=== PATIENT | male | born 1945 | race Two or more races ===

== ENCOUNTER 2019-06-09 21:41 | Inpatient (IN) | payer MEDICARE, MEDICAID ==
[~2019-06-09] VITALS: Ht 165.1 cm; Wt 55.8 kg
--- NOTE | 2019-06-09 21:52 | NUR ---
DERIC BROUSSARD 34 FROM [facility] C/P INCREASED AGITATION X 1 DAY. BASELINE AOX1. ON ASSESSMENT, PT IS PLEASANT, CALM, COOPERATIVE. DENIES ANY MEDICAL COMPLAINTS. NO ACUTE DISTRESS NOTED. SKIN INTACT. READY FOR EVAL.
[2019-06-09 22:12] LABS: BASOPHILS # (AUTO) 0.1 /CMM (0.0-0.2); BASOPHILS % (AUTO) 0.7 % (0.0-2.0); EOSINOPHILS % (AUTO) 0.3 % (0.0-6.0); HEMATOCRIT 35 % (39-51); HEMOGLOBIN 12.2 g/dL (13.5-17.5); LYMPHOCYTES # (AUTO) 0.6 /CMM (0.8-4.8); LYMPHOCYTES % (AUTO) 8.4 % (20.0-44.0); MEAN CORPUSCULAR HGB CONC 35 g/dl (31.0-36.0); MEAN CORPUSCULAR VOLUME 99 fL (80-96); MONOCYTES # (AUTO) 0.6 /CMM (0.1-1.30); MONOCYTES % (AUTO) 7.9 % (2.0-12.0); NEUTROPHILS # (AUTO) 6.2 /CMM (1.8-8.9); NEUTROPHILS % (AUTO) 82.7 % (43.0-81.0); PLATELET COUNT (AUTO) 192 /CMM (150-450); RED BLOOD CELL COUNT(AUTO) 3.57 MIL/uL (4.5-6.0); WHITE BLOOD COUNT (AUTO) 7.5 K/uL (4.3-11.0)
[2019-06-09 22:21] LABS: CARBON DIOXIDE 30 mmol/L (21-32); CHLORIDE 106 mmol/L (98-107); CREATININE 1.8 mg/dL (0.6-1.3); GLUCOSE 159 mg/dL (74-106); POTASSIUM 5.4 mmol/L (3.5-5.1); SODIUM SERUM 141 mmol/L (136-145); UREA NITROGEN, BLOOD 33 mg/dL (7-18)
[2019-06-09 22:30] LABS: ALKALINE PHOSPHATASE 168 U/L (46-116); BILIRUBIN,DIRECT 0.2 mg/dL (0.0-0.2); BILIRUBIN,TOTAL 0.3 mg/dL (0.2-1.0)
[2019-06-09 22:31] LABS: ALANINE AMINOTRANSFERASE 33 U/L (12-78); ALBUMIN 3.6 g/dL (3.4-5.0); ASPARTATE AMINOTRANSFERASE 47 U/L (15-37); SALICYLATE 3.4 mg/dL (2.8-20.0); TOTAL PROTEIN, SERUM 7.3 g/dL (6.4-8.2)
[2019-06-09 22:32] LABS: ACETAMINOPHEN < 2 ug/ml (10-30); ALCOHOL, BLOOD < 3 mg/dL (0-0)
[2019-06-09 22:40] LABS: APPEARANCE,URINE Clear (CLEAR); BILIRUBIN,URINE MODERATE (NEGATIVE); BLOOD, URINE Negative Ery/uL (NEGATIVE); COLOR,URINE Orange (YELLOW); KETONES,URINE 15 (NEGATIVE); LEUKOCYTE ESTERASE ,URINE Negative (NEGATIVE); NITRITE, URINE Negative (NEGATIVE); PROTEIN,URINE 100 mg/dl (NEGATIVE); UGLUCOSE 100 MG/DL mg/dL (NEGATIVE); UROBILINOGEN,URINE 0.2 EU/dL (0.2)
[2019-06-09 22:51] LABS: BACTERIA,URINE None seen /HPF (None Seen); RBC,URINE NONE SEEN /HPF (0-2); SQUAMOUS EPITHELIAL CELL,UR Few /HPF (None Seen); WBC,URINE 0-2 /HPF (0-3)
[2019-06-10] MEDS ORDERED: ZOLPIDEM TARTRATE 5 MG TABLET PO PRN
[2019-06-10] MEDS ORDERED: IV NS 0.9% 1,000 ML BAG IV ONE
[2019-06-10] MEDS ORDERED: ONDANSETRON HCL/PF 4 MG/2 ML VIAL IVP PRN
[2019-06-10] MEDS ORDERED: MAGNESIUM HYDROXIDE 30 ML UDC PO PRN
[2019-06-10] MEDS ORDERED: ACETAMINOPHEN 325 MG TABLET PO PRN
[2019-06-10] MEDS ORDERED: INSULIN REGULAR, HUMAN 100 UNIT/ML 3 ML VIAL SQ PRN
[2019-06-10] MEDS ORDERED: DEXTROSE 50%-WATER 50 ML DISP.SYRIN IV PRN
[2019-06-10] MEDS ORDERED: Z GUARD REMEDY 2 OZ OINT TP PRN
[2019-06-10] MEDS ORDERED: MAG HYDROX/AL HYDROX/SIMETH 30 ML UDC PO PRN
--- NOTE | 2019-06-10 00:10 | NUR ---
REPORT GIVEN TO ADRIANA GEORGE FOR CONTINUATION OF CARE.
[2019-06-10] MEDS ORDERED: OLOP5DRO EACHEYE (00:16)
[2019-06-10] MEDS ORDERED: LISI-607 PO (00:16)
[2019-06-10] MEDS ORDERED: ENTA200T PO (00:16)
[2019-06-10] MEDS ORDERED: CARB1TAB24 PO (00:16)
[2019-06-10] MEDS ORDERED: AMIN30LI2 PO (00:16)
[2019-06-10] MEDS ORDERED: MULT-213 PO (00:16)
[2019-06-10] MEDS ORDERED: ASCO500T8 PO (00:16)
[2019-06-10] MEDS ORDERED: ATOR80TA PO (00:16)
[2019-06-10] MEDS ORDERED: MELA5TAB PO (00:16)
[2019-06-10] MEDS ORDERED: ASPI-1169 PO (00:16)
[2019-06-10] MEDS ORDERED: DONE5TAB34 PO (00:16)
[2019-06-10] MEDS ORDERED: METF-442 PO (00:16)
[2019-06-10] MEDS ORDERED: QUET25TA PO (00:17)
[2019-06-10] MEDS ORDERED: MIRT15TA7 PO (00:17)
--- NOTE | 2019-06-10 00:21 | NUR ---
PT TRANSFERED TO [facility]IA [facility] WITH EMT.
[2019-06-10 00:30] VITALS: BP 130/68
--- NOTE | 2019-06-10 00:30 | NUR ---
ATOMIC PROCESS ENGINEER NOTES, RECEIVED PATIENT FROM ER DEPARTMENT IN COMPANY OF ONE NURSE VIA LEE, PATIENT UNDER MEDICAL SERVICES OF KAREEM BELCHER, WITH ADMITTING DX OF ACUTE RENAL FAILURE, PATIENT A/O TO SELF ABLE TO VERBALIZED AND RESPONDED "IM FINE " WHEN ASKED HOW HES FEELING, BREATHING EVEN AND UNLABORED, NO SOB/ACUTE DISTRESS NOTED, AT ROOM AIR WITH OPTIMAL O2 SATURATION LEVEL , DENIES PAIN OR DISCOMFORT, NO EPISODES OF AGITATION NOTES AT THIS TIME, IV ACCESS IN RIGHT UPPER ARM, PATENT AND INTACT, INFUSING NS 0.9% BOLUS FROM ER, INFUSING WELL AND PATIENT TOLERATED WELL, BED BATH PROVIDED UPON ADMISSION, BED LOCKED AND IN LOW POSITION, CALL LIGHT W/I REACH, BILATERAL 2 1/2 S/R OF BED UP, WILL CONTINUE TO MONITOR CLOSELY, VS 97.9, 78, 18, 100%, 130/68.
[2019-06-10] MEDS: IV NS 0.9% 1,000 ML IV PRN ×2 (00:50→17:48)
[2019-06-10 04:00] VITALS: BP 137/74
--- NOTE | 2019-06-10 06:42 | NUR ---
RN NOTES, PATIENT IN BED AWAKE AT THIS TIME, NO SIGNIFICANT CHANGE IN CONDITION DURING THE NIGHT WITH STABLE VITAL SIGNS, WILL ENDORSE CONTINUITY OF CARE TO ONCOMING NURSE.
--- NOTE | 2019-06-10 07:15 | NUR ---
PATIENT A/OX1 TO SELF ONLY. NO ACUTE DISTRESS OR SOB NOTED. PATIENT IS AGITATED AND HITTING STAFF WHEN TOUCHED. UNABLE TO COMPLETE BLOOD SUGAR. L UA 20G INFUSING NS ORDERED. REORIENTATION PROVIDED PRN. BED ALARM ON, SIDE RAILS UPX3, NEXT TO NURSING STATION, CALL LIGHT WITHIN REACH. WILL CONTINUE TO MONITOR.
[2019-06-10] MEDS: BLOOD SUGAR DIAGNOSTIC 1 EACH STRIP IN SCH ×4 (07:30→22:53)
[2019-06-10 07:39] LABS: BASOPHILS % (AUTO) 0.3 % (0.0-2.0); EOSINOPHILS % (AUTO) 1.7 % (0.0-6.0); HEMATOCRIT 34 % (39-51); HEMOGLOBIN 11.6 g/dL (13.5-17.5); LYMPHOCYTES # (AUTO) 1.6 /CMM (0.8-4.8); LYMPHOCYTES % (AUTO) 26.8 % (20.0-44.0); MEAN CORPUSCULAR HGB CONC 35 g/dl (31.0-36.0); MEAN CORPUSCULAR VOLUME 98 fL (80-96); MONOCYTES # (AUTO) 0.6 /CMM (0.1-1.30); MONOCYTES % (AUTO) 9.7 % (2.0-12.0); NEUTROPHILS # (AUTO) 3.6 /CMM (1.8-8.9); NEUTROPHILS % (AUTO) 61.5 % (43.0-81.0); PLATELET COUNT (AUTO) 169 /CMM (150-450); RED BLOOD CELL COUNT(AUTO) 3.42 MIL/uL (4.5-6.0); WHITE BLOOD COUNT (AUTO) 5.9 K/uL (4.3-11.0)
[2019-06-10 08:00] VITALS: BP 134/63
[2019-06-10 08:07] LABS: CHOLESTEROL 121 mg/dL (<200); HDL CHOLESTEROL 50 mg/dL (40-60); LDL 59 mg/dL (0-99); THYROID STIMULATING HORMONE 1.177 uIU/mL (0.358-3.74); TRIGLYCERIDES 68 mg/dL (30-150)
[2019-06-10 08:15] LABS: ALANINE AMINOTRANSFERASE 41 U/L (12-78); ALKALINE PHOSPHATASE 160 U/L (46-116); ASPARTATE AMINOTRANSFERASE 38 U/L (15-37); BILIRUBIN,TOTAL 0.3 mg/dL (0.2-1.0); CALCIUM, SERUM 8.3 mg/dL (8.5-10.1); CARBON DIOXIDE 22 mmol/L (21-32); CHLORIDE 108 mmol/L (98-107); CREATININE 1.2 mg/dL (0.6-1.3); GLUCOSE 98 mg/dL (74-106); MAGNESIUM 1.7 mg/dL (1.8-2.4); PHOSPHORUS 3.5 mg/dL (2.5-4.9); POTASSIUM 4.1 mmol/L (3.5-5.1); SODIUM SERUM 139 mmol/L (136-145); TOTAL PROTEIN, SERUM 6.3 g/dL (6.4-8.2); UREA NITROGEN, BLOOD 30 mg/dL (7-18)
[2019-06-10] MEDS: HEPARIN SODIUM, PORCINE 5000 UNITS/1 ML VIAL SQ SCH ×2 (08:33→21:43)
[2019-06-10] MEDS: Magnesium 1GM/D5W 100ML PREMIX 100 ML IV SCH ×2 (11:28→12:39)
[2019-06-10 12:00] VITALS: BP 125/61
--- NOTE | 2019-06-10 15:14 | NUR ---
SON AND AT BEDSIDE. SIGNED POLST FOR DNR/DNI CODE STATUS. DR. GALLEGOS NOTIFIED, CALLED BACK, TELEPHONE/RBO FOR DNR/DNI PLACED, POLST IN CHART.
[2019-06-10 16:00] VITALS: BP 131/67
--- NOTE | 2019-06-10 19:05 | NUR ---
MS RN NOTES PATIENT IN BED AWAKE, A/OX1, CONFUSED. ON ROOM AIR, NO ACUTE DISTRESS OR SOB NOTED. DENIES ANY PAIN. IV SITE LEFT UA 20G, FLUSHING AND PATENT, SITE C/D/I. IV FLUIDS RUNNING ORDERED. REORIENTATION PROVIDED PRN. SAFETY MEASURES IN PLACE; BED ALARM ON, SIDE RAILS UPX3, BED LOCKED AND IN LOWEST POSITION, CALL LIGHT WITHIN REACH. WILL CONTINUE TO MONITOR.
--- NOTE | 2019-06-10 19:13 | NUR ---
MS RN CLOSING PATIENT A/OX1. NO ACUTE DISTRESS OR SOB NOTED. NO SIGNIFICANT CHANGES IN PATIENT CONDITION THROUGHOUT SHIFT. NOTED INCREASE IN APPETITE AND LESS AGITATION. BED LOCKED, LOW, SIDE RAILS UP X3, BED ALARM ON, CALL LIGHT WITHIN REACH, ENDORSED TO NOC RN FOR DEMETRI
[2019-06-10 20:00] VITALS: BP 139/71
[2019-06-11 04:00] VITALS: BP 131/69
[2019-06-11] MEDS: IV NS 0.9% 1,000 ML IV PRN ×2 (05:45→20:14)
--- NOTE | 2019-06-11 07:11 | NUR ---
MS RN CLOSING NOTES PATIENT IN BED SLEEPING, BUT EASY TO AROUSE. A/OX1, CONFUSED. NO ACUTE CHANGES THROUGHOUT SHIFT. ON ROOM AIR, NO ACUTE DISTRESS OR SOB NOTED. DENIES ANY PAIN. IV SITE LEFT UA 20G, FLUSHING AND PATENT, SITE C/D/I. IV FLUIDS RUNNING ORDERED. REORIENTATION PROVIDED PRN. SAFETY MEASURES MAINTAINED; BED ALARM ON, SIDE RAILS UPX3, BED LOCKED AND IN LOWEST POSITION, CALL LIGHT WITHIN REACH. ENDORSED TO AM RN FOR DEMETRI.
--- NOTE | 2019-06-11 07:20 | NUR ---
RN OPENING NOTES RECEIVED PATIENT SLEEPING IN BED COMFORTABLY, EASILY AROUSED. HE IS AO X1-2, CONFUSED. HE IS ON RA, TOLERATING WELL, SHOWS NO S/SX OF RESP DISTRESS OR SOB. HE HAS NO SWELLING OR EDEMA. DENIES ANY PAIN OR DISCOMFORT AT THIS TIME. HE IS ON A SOFT DIET. HE HAS A HOLA 20 G INFUSING NS AT 75 ML/HR. SAFETY MEASURES HAVE BEEN IMPLEMENTED, CALL LIGHT WITHIN REACH, BED IN LOWEST AND LOCKED POSITION, SIDE RAILS UP X2, WILL CONTINUE TO MONITOR FOR ANY CHANGES.
[2019-06-11 08:00] VITALS: BP 154/74
[2019-06-11 08:25] LABS: CARBON DIOXIDE 23 mmol/L (21-32); CHLORIDE 107 mmol/L (98-107); CREATININE 1.1 mg/dL (0.6-1.3); GLUCOSE 88 mg/dL (74-106); MAGNESIUM 1.9 mg/dL (1.8-2.4); POTASSIUM 4.3 mmol/L (3.5-5.1); SODIUM SERUM 138 mmol/L (136-145); UREA NITROGEN, BLOOD 20 mg/dL (7-18)
[2019-06-11] MEDS: BLOOD SUGAR DIAGNOSTIC 1 EACH STRIP IN SCH ×4 (08:26→21:31)
[2019-06-11] MEDS: HEPARIN SODIUM, PORCINE 5000 UNITS/1 ML VIAL SQ SCH ×2 (08:57→21:22)
[2019-06-11 16:00] VITALS: BP 123/72
[2019-06-11] MEDS: OLOPATADINE HCL 0.1% OPHTH BOTTLE EACHEYE SCH (16:31)
[2019-06-11] MEDS: ENTACAPONE 200 MG TABLET PO SCH (16:31)
[2019-06-11] MEDS: CARBIDOPA/LEVODOPA 25/250 MG 1 UDTAB PO SCH (16:31)
--- NOTE | 2019-06-11 19:02 | NUR ---
RN CLOSING NOTES PATIENT IS RESTING IN BED COMFORTABLY, HE DENIES ANY PAIN OR DISCOMFORT AT THIS TIME. HIS APPETITE HAS IMPROVED, PATIENT ATE ALL OF HIS MEALS THROUGHOUT THE DAY. HE IS AOX2-3, AMBULATORY ASSIST. PATIENT GOALS HAVE BEEN MET. DENIES ANY SOB OR RESP DISTRESS. SAFETY MEASURES HAVE BEEN IMPLEMENTED, CALL LIGHT WITHIN REACH, BED IN LOWEST AND LOCKED POSITION, SIDE RAILS UP X2, WILL ENDORSE TO NIGHTSHIFT RN.
--- NOTE | 2019-06-11 19:05 | NUR ---
MS RN NOTE RECEIVED PT IN STABLE CONDITION. A/O X2-3, CURRENTLY IN BED WATCHING TV. NO SIGNS OF SOB OR DISTRESS, NO C/O PAIN. IV IN HOLA #[address] WITH IVF INFUSING. ALL CURRENT NEEDS ATTENDED TO. BED LOW, LOCKED, UPPER RAILS UP, AND CALL LIGHT WITHIN REACH. WILL CONT. TO MONITOR.
[2019-06-11 20:00] VITALS: BP 147/70
[2019-06-11 21:39] VITALS: BP 147/70
[2019-06-11] MEDS ORDERED: DONEPEZIL 5 MG TABLET PO SCH (22:00)
[2019-06-11] MEDS ORDERED: QUETIAPINE FUMARATE 25 MG TABLET PO SCH (22:00)
[2019-06-11] MEDS ORDERED: MIRTAZAPINE 15 MG TABLET PO SCH (22:00)
[2019-06-12 04:00] VITALS: BP 120/59
--- NOTE | 2019-06-12 06:38 | NUR ---
MS RN NOTE PT IN STABLE CONDITION. A/O X2-3, CURRENTLY IN BED RESTING. NO SIGNS OF SOB OR DISTRESS, NO C/O PAIN. IV IN HOLA #[address] WITH IVF INFUSING. ALL CURRENT NEEDS ATTENDED TO. BED LOW, LOCKED, UPPER RAILS UP, AND CALL LIGHT WITHIN REACH. WILL CONT. TO MONITOR AND ENDORSE TO NEXT SHIFT FOR DEMETRI.
--- NOTE | 2019-06-12 07:22 | NUR ---
RN OPENING NOTES RECEIVED PATIENT SLEEPING IN BED COMFORTABLY. PT IS AOX2-3, VERBAL, AND AMBULATORY WITH ASSIST. PT DENIES ANY PAIN OR DISCOMFORT AT THIS TIME. HE IS ON RA AND TOLERATING WELL, SHOWS NO S/SX OF RESP DISTRESS. SKIN IS INTACT. HE HAS AN IV ON HOLA 20 G INFUSING NS AT 75 ML/HR. PATIENT IS ON A SOFT DIET. SAFETY MEASURES HAVE BEEN IMPLEMENTED, CALL LIGHT IS WITHIN REACH, BED IS IN LOWEST AND LOCKED POSITION, SIDE RAILS UP X2, WILL CONTINUE TO MONITOR FOR ANY CHANGES.
[2019-06-12] MEDS: BLOOD SUGAR DIAGNOSTIC 1 EACH STRIP IN SCH ×2 (07:50→12:07)
[2019-06-12 08:00] VITALS: BP_SYST 115; BP_SYST 156; BP_DIAS 72; BP_DIAS 76
[2019-06-12 08:35] LABS: CALCIUM, SERUM 7.9 mg/dL (8.5-10.1); CARBON DIOXIDE 25 mmol/L (21-32); CHLORIDE 108 mmol/L (98-107); CREATININE 1.1 mg/dL (0.6-1.3); GLUCOSE 86 mg/dL (74-106); POTASSIUM 4.2 mmol/L (3.5-5.1); SODIUM SERUM 139 mmol/L (136-145); UREA NITROGEN, BLOOD 22 mg/dL (7-18)
[2019-06-12] MEDS: OLOPATADINE HCL 0.1% OPHTH BOTTLE EACHEYE SCH (08:38)
[2019-06-12] MEDS: CARBIDOPA/LEVODOPA 25/250 MG 1 UDTAB PO SCH ×2 (08:38→13:12)
[2019-06-12] MEDS: ENTACAPONE 200 MG TABLET PO SCH ×2 (08:38→13:12)
[2019-06-12] MEDS: HEPARIN SODIUM, PORCINE 5000 UNITS/1 ML VIAL SQ SCH (08:40)
[2019-06-12] MEDS ORDERED: ASPIRIN 81 MG TAB.CHEW PO SCH (09:00)
[2019-06-12] MEDS ORDERED: MULTIVITAMINS,THERAGRAN 1 UDTAB TABLET PO SCH (09:00)
[2019-06-12] MEDS ORDERED: ASCORBIC ACID 500 MG TABLET PO SCH (09:00)
[2019-06-12] MEDS ORDERED: PROSOURCE / PROSTAT (PYXIS) 30 ML UDC PO SCH (09:00)
--- NOTE | 2019-06-12 15:05 | NUR ---
TRANSFER REPORT GIVEN TO ANABELLE AT [facility] .
--- NOTE | 2019-06-12 15:54 | NUR ---
PATIENT HAS BEEN DISCHARGED. HE LEFT THE UNIT WITH EMT [facility]. HE IS IN STABLE CONDITION. PATIENT NEEDS HAVE BEEN MET. HIS APPETITE HAS INCREASED, NO SIGNS OF AGITATION NOTED. IV SITE REMOVED, BELONGINGS LIST CHECKED OFF.
== END 2019-06-12 15:50 | DRG 640 ==
LOC: ER 21:42 → MEDSG1 06-10 00:03
PROVIDERS: ADMIT Hospitalist; ATTEND Nurse Practitioner Acute Care
DX: E86.9 Volume depletion, unspecified (principal); N17.0 Acute kidney failure with tubular necrosis; G93.41 Metabolic encephalopathy; D68.59 Other primary thrombophilia; F02.81 Dementia in other diseases classified elsewhere, unspecified severity, with behavioral disturbance; I69.351 Hemiplegia and hemiparesis following cerebral infarction affecting right dominant side; R62.7 Adult failure to thrive; E11.65 Type 2 diabetes mellitus with hyperglycemia; E78.5 Hyperlipidemia, unspecified; G20 Parkinson's disease; F32.9 Major depressive disorder, single episode, unspecified; Z91.81 History of falling; Z91.19 Patient's noncompliance with other medical treatment and regimen; Z91.14 Patient's other noncompliance with medication regimen; Z74.01 Bed confinement status; D53.9 Nutritional anemia, unspecified; E87.5 Hyperkalemia; Z79.82 Long term (current) use of aspirin; Z79.899 Other long term (current) drug therapy; Z79.84 Long term (current) use of oral hypoglycemic drugs; I11.9 Hypertensive heart disease without heart failure
CPT/HCPCS: 36415; 80048-TC; 80053-TC; 80061-TC; 80076-TC; 80305; 81000-TC; 82962-TC; 83735-TC; 84100-TC; 84443-TC; 85025-TC; 85730-TC; 87081-TC; 97116-TC; 97530-TC; G0378; G0480; J1644; J1815; J3475; J7030

== ENCOUNTER 2019-10-07 13:25 | Emergency (ER) | payer MEDICARE, OTHER ==
[~2019-10-07] VITALS: Ht 165.1 cm; Wt 63.0 kg
[~2019-10-07 13:25] MED LIST: AMIN30LI2 PO; ASCO500T87 PO; ASPI-1169 PO; ATOR80TA PO; CARB1TAB24 PO; DONE5TAB34 PO; ENTA200T PO; LISI-607 PO; MELA5TAB PO; METF-442 PO; MIRT15TA7 PO; MULT-213 PO; OLOP5DRO EACHEYE; QUET25TA PO
--- NOTE | 2019-10-07 13:35 | NUR ---
PT BIBA C/O ALTERED MENTAL STATUS TODAY. PT ALERT AND AWAKE, RESPONSIVE TO MECHANICAL STIMULUS, VSS, BREATHING EVEN AND UNLABORED ON ROOM AIR W/ NAD NOTED. PT CONNECTED TO THE MONITOR AND POX
--- NOTE | 2019-10-07 13:40 | NUR ---
CALLED [employer] FOR BREANNA MCCLOUD
[2019-10-07] MEDS ORDERED: BISA10SU11 RC (13:52)
[2019-10-07] MEDS ORDERED: LORA-259 PO (13:52)
[2019-10-07] MEDS ORDERED: INSU100V28 SQ (13:52)
[2019-10-07] MEDS ORDERED: MAGN400O6 PO (13:52)
[2019-10-07] MEDS ORDERED: TEMA7.5C PO (13:52)
[2019-10-07] MEDS ORDERED: OLAN2.5T3 PO (13:52)
[2019-10-07] MEDS ORDERED: DIVA250T4 PO (13:52)
[2019-10-07] MEDS ORDERED: ACET-868 PO (13:52)
[2019-10-07] MEDS ORDERED: DOCU-141 PO (13:52)
[2019-10-07] MEDS ORDERED: BLOO-668 IN (13:52)
[2019-10-07] MEDS ORDERED: NA P133E RC (13:52)
--- NOTE | 2019-10-07 13:56 | NUR ---
XRAY AT BEDSIDE
[2019-10-07 13:58] LABS: BASOPHILS % (AUTO) 0.3 % (0.0-2.0); EOSINOPHILS % (AUTO) 0.8 % (0.0-6.0); HEMATOCRIT 37 % (39-51); HEMOGLOBIN 12.3 g/dL (13.5-17.5); LYMPHOCYTES % (AUTO) 14.7 % (20.0-44.0); MEAN CORPUSCULAR HGB CONC 34 g/dl (31.0-36.0); MEAN CORPUSCULAR VOLUME 97 fL (80-96); MONOCYTES # (AUTO) 0.4 /CMM (0.1-1.30); MONOCYTES % (AUTO) 6.5 % (2.0-12.0); NEUTROPHILS # (AUTO) 5.3 /CMM (1.8-8.9); NEUTROPHILS % (AUTO) 77.7 % (43.0-81.0); PLATELET COUNT (AUTO) 169 /CMM (150-450); RED BLOOD CELL COUNT(AUTO) 3.78 MIL/uL (4.5-6.0); WHITE BLOOD COUNT (AUTO) 6.8 K/uL (4.3-11.0)
[2019-10-07] MEDS ORDERED: IV NS 0.9% 500 ML BAG IV ONE (14:00)
[2019-10-07 14:15] LABS: ALANINE AMINOTRANSFERASE 11 U/L (12-78); ALBUMIN 3.5 g/dL (3.4-5.0); ALKALINE PHOSPHATASE 94 U/L (46-116); ASPARTATE AMINOTRANSFERASE 35 U/L (15-37); BILIRUBIN,DIRECT 0.1 mg/dL (0.0-0.2); BILIRUBIN,TOTAL 0.5 mg/dL (0.2-1.0); CARBON DIOXIDE 25 mmol/L (21-32); CHLORIDE 106 mmol/L (98-107); CREATININE 1.3 mg/dL (0.6-1.3); GLUCOSE 131 mg/dL (74-106); POTASSIUM 5.1 mmol/L (3.5-5.1); SODIUM SERUM 140 mmol/L (136-145); TOTAL PROTEIN, SERUM 7.7 g/dL (6.4-8.2); UREA NITROGEN, BLOOD 32 mg/dL (7-18)
--- NOTE | 2019-10-07 15:06 | NUR ---
PT TAKEN TO CT
--- NOTE | 2019-10-07 15:15 | NUR ---
PT BACK FROM CT
--- NOTE | 2019-10-07 15:34 | NUR ---
URINE OBTAINED AND SENT TO LAB
[2019-10-07 16:04] LABS: APPEARANCE,URINE Clear (CLEAR); BILIRUBIN,URINE Negative (NEGATIVE); BLOOD, URINE Negative Ery/uL (NEGATIVE); COLOR,URINE Yellow (YELLOW); KETONES,URINE Trace (NEGATIVE); LEUKOCYTE ESTERASE ,URINE Negative (NEGATIVE); NITRITE, URINE Negative (NEGATIVE); PROTEIN,URINE Negative (NEGATIVE); UGLUCOSE Negative (NEGATIVE); UROBILINOGEN,URINE 0.2 EU/dL (0.2)
--- NOTE | 2019-10-07 16:10 | NUR ---
UNABLE TO OBTAIN VITAL SIGNS. PT REMOVING BP CUFF AND POX MONITOR.
--- NOTE | 2019-10-07 16:14 | NUR ---
daughter johnson [phone]
--- NOTE | 2019-10-07 16:18 | NUR ---
message left for son-in-law Ayan at [phone]
[2019-10-07 16:25] LABS: HYALINE CASTS, URINE Few /LPF (None Seen)
[2019-10-07 16:26] LABS: BACTERIA,URINE Few /HPF (None Seen); RBC,URINE 0-2 /HPF (0-2)
[2019-10-07 16:27] LABS: SQUAMOUS EPITHELIAL CELL,UR Rare /HPF (None Seen)
--- NOTE | 2019-10-07 16:38 | NUR ---
LENNY ROJAS [id number] TRIP#[id number]
--- NOTE | 2019-10-07 19:53 | NUR ---
UPDATED ETA 1954
--- NOTE | 2019-10-07 20:10 | NUR ---
REPORT GIVEN TO EMS, PT IN STABLE CONDITION.
[2019-10-07 20:12] VITALS: BP 146/88
== END 2019-10-07 20:13 ==
LOC: ER 13:27
DX: R41.82 Altered mental status, unspecified (principal); G20 Parkinson's disease; F02.80 Dementia in other diseases classified elsewhere, unspecified severity, without behavioral disturbance, psychotic disturbance, mood disturbance, and anxiety; R00.1 Bradycardia, unspecified; I10 Essential (primary) hypertension; E11.9 Type 2 diabetes mellitus without complications; M62.81 Muscle weakness (generalized); Z79.4 Long term (current) use of insulin; Z79.899 Other long term (current) drug therapy; Z79.82 Long term (current) use of aspirin
CPT/HCPCS: 36415; 70450; 71045; 80048; 80076; 81001; 83605; 84145; 84484; 85025; 85730; 87040 ×2; 87086; 93005; 99285; J7040; 81000-TC

== ENCOUNTER 2019-12-10 16:59 | Emergency (ER) | payer MEDICARE, OTHER ==
[~2019-12-10] VITALS: Ht 167.6 cm; Wt 68.9 kg
[~2019-12-10 16:59] MED LIST changes: +ACET-868 PO; -AMIN30LI2 PO; -ASCO500T87 PO; +BISA10SU11 RC; +BLOO-668 IN; +DIVA250T4 PO; +DOCU-141 PO; -DONE5TAB34 PO; -ENTA200T PO; +INSU100V28 SQ; +LORA-259 PO; +MAGN400O6 PO; -MELA5TAB PO; -MIRT15TA7 PO; -MULT-213 PO; +NA P133E RC; +OLAN2.5T3 PO; -OLOP5DRO EACHEYE; -QUET25TA PO; +TEMA7.5C PO
--- NOTE | 2019-12-10 17:34 | NUR ---
BIB EMS, PT WAS HITTING STAFF AT NURSING FACILITY. ON ARRIVAL, PT IS CALM AND COOPERATIVE. NO COMPLAINTS AT THIS TIME. NO ACUTE DISTRESS NOTED. MADE COMFORTABLE AND READY FOR EVAL.
[2019-12-10] MEDS ORDERED: CLOP75TA15 PO (17:41)
--- NOTE | 2019-12-10 18:22 | NUR ---
PT IS HARD STICK. LAB UNABLE TO OBTAIN BLOOD
[2019-12-10 19:07] LABS: BASOPHILS % (AUTO) 0.2 % (0.0-2.0); EOSINOPHILS % (AUTO) 1.5 % (0.0-6.0); HEMATOCRIT 37 % (39-51); HEMOGLOBIN 12.3 g/dL (13.5-17.5); LYMPHOCYTES # (AUTO) 1.6 /CMM (0.8-4.8); MEAN CORPUSCULAR HGB CONC 33 g/dl (31.0-36.0); MEAN CORPUSCULAR VOLUME 97 fL (80-96); MONOCYTES # (AUTO) 0.8 /CMM (0.1-1.30); MONOCYTES % (AUTO) 9.1 % (2.0-12.0); NEUTROPHILS # (AUTO) 5.8 /CMM (1.8-8.9); NEUTROPHILS % (AUTO) 70.2 % (43.0-81.0); PLATELET COUNT (AUTO) 207 /CMM (150-450); RED BLOOD CELL COUNT(AUTO) 3.81 MIL/uL (4.5-6.0); WHITE BLOOD COUNT (AUTO) 8.3 K/uL (4.3-11.0)
[2019-12-10 19:16] LABS: CARBON DIOXIDE 27 mmol/L (21-32); CHLORIDE 106 mmol/L (98-107); CREATININE 1.2 mg/dL (0.6-1.3); GLUCOSE 95 mg/dL (74-106); POTASSIUM 5.4 mmol/L (3.5-5.1); SODIUM SERUM 141 mmol/L (136-145); UREA NITROGEN, BLOOD 24 mg/dL (7-18)
[2019-12-10 19:21] LABS: ALANINE AMINOTRANSFERASE 15 U/L (12-78); ALBUMIN 3.7 g/dL (3.4-5.0); ALCOHOL, BLOOD < 3 mg/dL (0-0); ALKALINE PHOSPHATASE 133 U/L (46-116); ASPARTATE AMINOTRANSFERASE 90 U/L (15-37); BILIRUBIN,DIRECT 0.1 mg/dL (0.0-0.2); BILIRUBIN,TOTAL 0.3 mg/dL (0.2-1.0); TOTAL PROTEIN, SERUM 7.9 g/dL (6.4-8.2)
--- NOTE | 2019-12-10 19:21 | NUR ---
Patient is resting comfortably in bed with eyes closed. Easily aroused. VSS
[2019-12-10 19:24] LABS: ACETAMINOPHEN 0 ug/ml (10-30); SALICYLATE 0.5 mg/dL (2.8-20.0)
[2019-12-10 20:13] VITALS: BP 138/76
--- NOTE | 2019-12-10 20:22 | NUR ---
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
[2019-12-10 20:46] LABS: APPEARANCE,URINE Clear (CLEAR); BILIRUBIN,URINE Negative (NEGATIVE); BLOOD, URINE Negative Ery/uL (NEGATIVE); COLOR,URINE Yellow (YELLOW); KETONES,URINE Negative (NEGATIVE); LEUKOCYTE ESTERASE ,URINE Negative (NEGATIVE); NITRITE, URINE Negative (NEGATIVE); PROTEIN,URINE Negative (NEGATIVE); UGLUCOSE Negative (NEGATIVE); UROBILINOGEN,URINE 0.2 EU/dL (0.2)
--- NOTE | 2019-12-10 21:37 | NUR ---
PER INTAKE SAY GASTELUM, PT WILL BE TRANSFERRED TO [facility] UNIT. ACCEPTING DR KATHLEEN, PLEASE GIVE REPORT TO ER [phone]
--- NOTE | 2019-12-10 22:05 | NUR ---
CALLED [facility] FOR TRANSPORTATION. ETA [phone]
--- NOTE | 2019-12-10 23:19 | NUR ---
REPORT GIVEN TO ARIEL DE LA GARZA AT [facility] UNIT FOR DEMETRI.
--- NOTE | 2019-12-10 23:29 | NUR ---
REPORT GIVEN TO [facility] EMT UNIT #[id number] FOR TRANSPORT.
== END 2019-12-10 23:31 ==
LOC: ER 17:01
DX: F23 Brief psychotic disorder (principal); E86.0 Dehydration; E87.5 Hyperkalemia; D64.9 Anemia, unspecified; G20 Parkinson's disease; F02.80 Dementia in other diseases classified elsewhere, unspecified severity, without behavioral disturbance, psychotic disturbance, mood disturbance, and anxiety; I10 Essential (primary) hypertension; F32.9 Major depressive disorder, single episode, unspecified; E11.9 Type 2 diabetes mellitus without complications; Z79.899 Other long term (current) drug therapy; Z79.84 Long term (current) use of oral hypoglycemic drugs
CPT/HCPCS: 36415; 80048; 80076; 80305; 80307; 80329; 81001; 85025; 99285; G0480; 81000-TC